=== PATIENT | female | born 1980 | race Two or more races ===

== ENCOUNTER 2024-04-03 05:50 | Inpatient (IN) | payer OTHER ==
[~2024-04-03 05:50] MED LIST: SYNTHROID125 MCG
[2024-04-03] MEDS ORDERED: METRONIDAZOLE/SODIUM CHLORIDE 500 MG/100 ML PIGGYBACK IV ONE (11:00)
[2024-04-03] MEDS ORDERED: HEMOSTATIC MATRIX 1 KIT KIT TOP ONE ×2 (11:00→12:15)
[2024-04-03] MEDS ORDERED: BUPIVACAINE HCL 30 ML VIAL IJ ONE (11:00)
[2024-04-03] MEDS ORDERED: DIBUCAINE 15 GM OINT..GM. TUBE TOP ONE (11:00)
[2024-04-03] MEDS ORDERED: CEFTRIAXONE SODIUM 2,000 MG VIAL IV ONE (11:00)
[2024-04-03] MEDS ORDERED: POVIDONE-IODINE 118 ML BOTT TOP ONE (11:00)
[2024-04-03] MEDS ORDERED: OxyCODONE HCL 5 MG TABLET (ROXICODONE) PO PRN (14:15)
[2024-04-03] MEDS ORDERED: MORPHINE SULFATE 4 MG/ML CARTRIDGE IV PRN (14:15)
[2024-04-03] MEDS ORDERED: RINGERS SOLUTION,LACTATED 1,000 ML IV SCH (14:15)
[2024-04-03] MEDS ORDERED: ONDANSETRON HCL 2 MG/ML VIAL IV PRN (14:15)
[2024-04-03 15:35] LABS: HEMATOCRIT 33.5 % (36.0-45.00); MEAN CELL VOLUME 93.6 fL (80.00-100.00); MEAN CORPUSCULAR HEMOGLOBIN 30.7 pg (27.00-32.0); MEAN CORPUSCULAR HGB CONC 32.9 g/dl (32.0-36.0); PLATELET COUNT 172 K/uL (150-450); RED BLOOD COUNT 3.58 M/uL (4.00-6.00); RED CELL DISTRIBUTION WIDTH 14.4 % (11.5-14.5)
[2024-04-03] MEDS ORDERED: GABAPENTIN 300 MG CAPSULE PO SCH (17:00)
[2024-04-03] MEDS ORDERED: HYOSCYAMINE SULFATE 0.125 MG TAB.SUBL SL SCH (17:00)
[2024-04-03] MEDS ORDERED: METRONIDAZOLE/SODIUM CHLORIDE 500 MG/100 ML PIGGYBACK IV SCH (17:00)
[2024-04-03] MEDS ORDERED: POLYETHYLENE GLYCOL 3350 17 GM BLIST.PACK PO SCH (17:00)
[2024-04-03] MEDS ORDERED: METOCLOPRAMIDE HCL 5 MG/ML VIAL IV SCH (17:00)
[2024-04-03 19:25] VITALS: BP 93/61; O2SAT 99
[2024-04-03] MEDS ORDERED: ACETAMINOPHEN 500 MG GEL..CAP PO SCH (20:00)
[2024-04-03] MEDS ORDERED: CIPROFLOXACIN IN 5 % DEXTROSE 400 MG/200 ML PIGGYBAG IV SCH (21:00)
[2024-04-03] MEDS ORDERED: FAMOTIDINE/PF 20 MG/2 ML VIAL IV PUSH SCH (21:00)
[2024-04-04] VITALS: BP 103/67; O2SAT 97
[2024-04-04 07:19] LABS: HEMATOCRIT 31.6 % (36.0-45.00); HEMOGLOBIN 10.6 g/dL (12.0-15.00); MEAN CELL VOLUME 93.4 fL (80.00-100.00); MEAN CORPUSCULAR HEMOGLOBIN 31.3 pg (27.00-32.0); MEAN CORPUSCULAR HGB CONC 33.5 g/dl (32.0-36.0); PLATELET COUNT 173 K/uL (150-450); RED BLOOD COUNT 3.38 M/uL (4.00-6.00); RED CELL DISTRIBUTION WIDTH 14.4 % (11.5-14.5)
[2024-04-04 08:00] VITALS: BP 113/67; O2SAT 100
[2024-04-04 08:10] LABS: ALBUMIN 3.3 gm/dL (3.4-5.0); CALCIUM 8.4 mg/dL (8.5-10.1); CREATININE SERUM 0.52 mg/dL (0.55-1.02); GFR 129.95; MAGNESIUM 1.7 mg/dL (1.8-2.4); PHOSPHOROUS 2.6 mg/dL (2.5-4.9); POTASSIUM 4.02 mEq/L (3.5-5.1)
[2024-04-04] MEDS ORDERED: LACTOBACILLUS ACIDOPHILUS 1 CAP CAP PO SCH (09:00)
[2024-04-04 12:00] VITALS: BP 107/67; O2SAT 98
[2024-04-04 15:45] VITALS: BP 105/72; O2SAT 99
[2024-04-05 00:17] VITALS: BP 117/72; O2SAT 100
[2024-04-05] MEDS ORDERED: LEVOTHYROXINE SODIUM 125 MCG TABLET PO SCH (06:00)
[2024-04-05 07:47] VITALS: BP 115/68; O2SAT 97
[2024-04-05] MEDS ORDERED: AMOX1TAB5 PO (09:27)
[2024-04-05] MEDS ORDERED: NEURONTIN300 MG PO (09:28)
[2024-04-05] MEDS ORDERED: CELECOXIB200 MG PO (09:28)
[2024-04-05] MEDS ORDERED: TRAMADOL HCL50 MG PO (09:30)
[2024-04-05] MEDS ORDERED: INTESTINEX680 M1 PO (09:30)
== END 2024-04-05 11:24 | disposition home or self-care (01) | DRG 349 ==
LOC: CIR.AMB 05:50 → O/R 16:23 → SURG 19:07 → CIR.AMB 20:30 → SURG 04-04 13:04
PROVIDERS: ADMIT Surgery; ATTEND Surgery
PROC: 0WQN0ZZ Repair Female Perineum, Open Approach (ICD-10-PCS; 2024-04-03)
PROC: 0DUR0JZ Supplement Anal Sphincter with Synthetic Substitute, Open Approach (ICD-10-PCS; principal; 2024-04-03 20:30)
DX: K62.81 Anal sphincter tear (healed) (nontraumatic) (old) (principal); R15.9 Full incontinence of feces

== ENCOUNTER → 2024-06-28 | Day surgery (SDC) | payer OTHER ==
[~2024-06-28] VITALS: Ht 160 cm; Wt 65.8 kg
[~2024-06-28] MED LIST changes: +AMOX1TAB5 PO; +BUPIVACAINE HCL/MPF 0.5% 30ML VIAL ONE; +CEFTRIAXONE SODIUM 2,000 MG VIAL ONE; +CELECOXIB200 MG PO; +CIPRO500 MG PO; +HEMOSTATIC MATRIX 1 KIT KIT TOP ONE; +INTESTINEX680 M1 PO; +JUVEN PACKET1 EAC1 PO; +LIDOCAINE HCL 1%/EPINEPHRINE 20ML VIAL IJ ONE; +METRONIDAZOLE/SODIUM CHLORIDE 500 MG/100 ML PIGGYBACK IV ONE; +METRONIDAZOLE500 MG PO; +NEURONTIN300 MG PO; +PERCOCET 5-3251 EACH PO; +POVIDONE-IODINE 118 ML BOTT TOP ONE; +RINGERS SOLUTION,LACTATED 1,000 ML IV SCH; +SYNTHROID150 MCG PO; +TRAMADOL HCL50 MG PO
--- NOTE | 2024-06-28 07:10 | NUR ---
paciente enviado por la dr. gurinder joshi para evaluacion por fisura anal. paciente con nota de la dra. gurinder joshi.
--- NOTE | 2024-06-28 09:30 | NUR ---
PTE EVALUADA POR MD KIM. RN BRITO MANEJA PTE CANALIZANDO VENA Y KARL MUESTRAS DE LAB. COMIENZA TRATAMIENTO DE IV FLUIDS. PENDIENTE PLACA
[2024-06-28 09:55] LABS: HEMATOCRIT 39.6 % (36.0-45.00); HEMOGLOBIN 12.9 g/dL (12.0-15.00); MEAN CELL VOLUME 93.3 fL (80.00-100.00); MEAN CORPUSCULAR HEMOGLOBIN 30.5 pg (27.00-32.0); MEAN CORPUSCULAR HGB CONC 32.7 g/dl (32.0-36.0); PLATELET COUNT 226 K/uL (150-450); RED BLOOD COUNT 4.24 M/uL (4.00-6.00); RED CELL DISTRIBUTION WIDTH 14.7 % (11.5-14.5)
[2024-06-28 10:10] LABS: INR 0.96; PARTIAL THROMBOPLASTIN TIME 26.5 SECONDS (22.0-34.0); PROTHROMBIN TIME 10.5 SECONDS (9.0-11.5)
[2024-06-28 10:16] LABS: BILIRUBIN TOTAL 0.52 mg/dL (0.3-1.2); CALCIUM 8.9 mg/dL (8.5-10.1); CREATININE SERUM 0.64 mg/dL (0.55-1.02); GFR 102.26; GLOBULINA 4.5 G/DL (2.4-3.5); POTASSIUM 3.55 mEq/L (3.5-5.1); TOTAL PROTEIN 8.5 gm/dL (6.4-8.2)
[2024-06-28 21:23] VITALS: BP 124/72; O2SAT 100
== END | disposition home or self-care (01) ==
LOC: ER 06:50 → EDSTATUS 06:50 → ER 07:02 → CIR.AMB 07:02 → O/R 10:52 → ER 10:52 → SEC-K 10:52 → O/R 14:26
PROVIDERS: ATTEND General Practice
DX: K60.30 Anal fistula, unspecified (principal); K60.2 Anal fissure, unspecified